=== PATIENT | male | born 1935 | race Caucasian/White ===

== ENCOUNTER 2017-12-24 23:38 | Emergency (ER) | payer BC, MEDICARE ==
[2017-12-25] MEDS ORDERED: ASPIRIN 81 MG CHEWABLE TABLET PO ONE (00:06)
[2017-12-25] MEDS ORDERED: DILTIAZEM 25MG/5ML VIAL IV ONE (00:14)
[2017-12-25 00:19] LABS: HEMATOCRIT 44.7 % (42.0-52.0); HEMOGLOBIN 14.8 gm/dl (14.0-18.0); MEAN CELL VOLUME 95.9 fl (81-97); MEAN CORPUSCULAR HEMOGLOBIN 31.8 pg (27-33); MEAN CORPUSCULAR HGB CONC 33.1 g/dl (32-36); MEAN PLATELET VOLUME 9.9 fl (7.4-10.4); PLATELET COUNT 218 K/uL (130-400); RED BLOOD COUNT 4.66 M/uL (4.40-5.70); RED CELL DISTRIBUTION WIDTH 14.4 % (11.5-14.5); WHITE BLOOD COUNT W/O DIFF 12.7 K/uL (4.2-12.2)
--- NOTE | 2017-12-25 00:27 | Emergency Department Record ---
History of Present Illness - General Chief Complaint: Cough Stated Complaint: "I HAVE A COLD THAT GOES AWAY AND COMES BACK" Time Seen by Provider: 12/24/17 23:50 Source: Patient Mode of Arrival: Ambulatory Limitations: No limitations - History of Present Illness Initial Comments: pt felt some tightness across his chest tonight for an hour cow tender. he has never had anything like that before. he had a cold a few weeks ago and went to [facility] . he has never had any cardiac issues. MD Complaint: Chest pain Onset/Timin -: Hour(s) Severity scale (1-10): 8 Consistency: Constant - Related Data Home Medications Medication Instructions Recorded Confirmed Last Taken Abiraterone Acetate [Zytiga] 4 tab PO DAILY 12/24/17 12/24/17 Unknown Amoxicillin [Amoxil] 875 mg PO BID 12/24/17 12/24/17 Unknown Atorvastatin Calcium [Lipitor] 10 mg PO DAILY 12/24/17 12/24/17 Unknown Fluticasone Propionate [Flonase] 2 spray EACH NARES BID 12/24/17 12/24/17 Unknown Loratadine 10 mg PO DAILY 12/24/17 12/24/17 Unknown Meloxicam 7.5 mg PO DAILY 12/24/17 12/24/17 Unknown Prednisone 5 mg PO DAILY 12/24/17 12/24/17 Unknown Aspirin [Aspir-Low] 81 mg PO DAILY 12/25/17 12/25/17 Unknown Allergies Allergy/AdvReac Type Severity Reaction Status Date / Time No Known Drug Allergies Allergy Verified 12/24/17 23:42 Travel Screening - Travel/Exposure Within Last 30 Days Have you traveled within the last 30 days?: No - Travel Symptoms Symptom Screening: None Review of Systems Reviewed: No additional complaints except as noted below Constitutional: Reports: As per HPI. Denies: Chills, Fever, Malaise, Night sweats, Weakness, Weight change Eyes: Reports: As per HPI. Denies: Eye discharge, Eye pain, Photophobia, Vision change ENT: Reports: As per HPI. Denies: Congestion, Dental pain, Ear pain, Epistaxis , Hearing loss, Throat pain Respiratory: Reports: As per HPI. Denies: Cough, Dyspnea, Hemoptysis, Stridor, Wheezes Cardiovascular: Reports: As per HPI. Denies: Arrhythmia, Chest pain, Dyspnea on exertion, Edema, Murmurs, Orthopnea, Palpitations, Paroxysmal nocturnal dyspnea, Rheumatic Fever, Syncope Endocrine: Reports: As per HPI. Denies: Fatigue, Heat or cold intolerance, Polydipsia, Polyuria Gastrointestinal: Reports: As per HPI. Denies: Abdominal pain, Constipation, Diarrhea, Hematemesis, Hematochezia, Melena, Nausea, Vomiting Genitourinary: Reports: As per HPI. Denies: Dysuria, Frequency, Hematuria, Incontinence, Retention, Testicular pain, Testicular mass, Urgency Musculoskeletal: Reports: As per HPI. Denies: Arthralgia, Back pain, Gout, Joint swelling, Myalgia, Neck pain Skin: Reports: As per HPI. Denies: Bruising, Change in color, Change in hair/ nails, Lesions, Pruritus, Rash Neurological: Reports: As per HPI. Denies: Abnormal gait, Confusion, Headache, Numbness, Paresthesias, Seizure, Tingling, Tremors, Vertigo, Weakness Psychiatric: Reports: As per HPI. Denies: Anxiety, Auditory hallucinations, Depression, Homicidal thoughts, Suicidal thoughts, Visual hallucinations Hematological/Lymphatic: Reports: As per HPI. Denies: Anemia, Blood Clots, Easy bleeding, Easy bruising, Swollen glands Past Medical History - SOCIAL HISTORY Smoking Status: Never smoker - RESPIRATORY Hx Respiratory Disorders: Yes Comment:: seasonal allergies - CARDIOVASCULAR Hx Cardio Disorders: Yes Comment:: High cholesterol - NEURO Hx Neuro Disorders: No - GI Hx GI Disorders: No - Hx Genitourinary Disorders: Yes Hx Prostate Problems: Yes (Cancer) - ENDOCRINE Hx Endocrine Disorders: No - MUSCULOSKELETAL Hx Musculoskeletal Disorders: No - PSYCH Hx Psych Problems: No - HEMATOLOGY/ONCOLOGY Hx Hematology/Oncology Disorders: Yes Hx Cancer: Yes (Prostrate ; Bone) Hx Chemotherapy: No Hx Radiation Therapy: No Family Medical History Any Significant Family History?: No Family Hx Comment (NOT TO BE USED IN PLACE OF ITEMS BELOW): unknown Physical Exam - General General Appearance: Alert, Oriented x3, Cooperative, Mild distress - Head Head exam: Normal inspection - Eye Eye exam: Normal appearance, PERRL, EOMI Pupils: Normal accommodation - ENT ENT exam: Normal exam, Mucous membranes moist, Normal external ear exam, Normal orophraynx Ear exam: Normal external inspection. negative: External canal tenderness Nasal Exam: Normal inspection. negative: Discharge, Sinus tenderness Mouth exam: Normal external inspection, Tongue normal Teeth exam: Normal inspection. negative: Dental caries Throat exam: Normal inspection. negative: Tonsillar erythema, Tonsillar exudate - Neck Neck exam: Normal inspection, Full ROM. negative: Tenderness - Respiratory Respiratory exam: Normal lung sounds bilaterally. negative: Respiratory distress - Cardiovascular Cardiovascular Exam: Normal heart sounds, Irregular rhythm, Tachycardia - GI/Abdominal GI/Abdominal exam: Soft, Normal bowel sounds. negative: Tenderness - Rectal Rectal exam: Deferred - exam: Deferred - Extremities Extremities exam: Normal inspection, Full ROM, Normal capillary refill. negative: Tenderness - Back Back exam: Reports: Normal inspection, Full ROM. 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 ] Pulse Rate [ 96 H Pulse Ox Probe] Respiratory 20 18 Rate Blood Pressure 154/97 [Left Arm] Blood Pressure 78/65 [Right Arm] Pulse Ox 95 93 L Medical Decision Making - Lab Data Result diagrams: 12/25/17 00:10 12/25/17 00:05 Lab Results 12/25/17 Range/Units 00:10 WBC 12.7 H (4.2-12.2) K/uL RBC 4.66 (4.40-5.70) M/uL Hgb 14.8 (14.0-18.0) gm/dl Hct 44.7 (42.0-52.0) % MCV 95.9 (81-97) fl MCH 31.8 (27-33) pg MCHC 33.1 (32-36) g/dl RDW 14.4 (11.5-14.5) % Plt Count 218 (130-400) K/uL MPV 9.9 (7.4-10.4) fl Neutrophils % 82.0 H (47-80) % Band Neutrophils % 2.0 (0-5) % Eosinophils % Not Reportable Basophils % Not Reportable Lymphocytes 10.0 L (16-45) % Monocytes 6.0 (0-9) % Basophils 0.0 (0-6) % Eosinophil Count 0.0 (0-6) % Disposition Disposition: Transfer Clinical Impression: New onset a-fib Disposition: Acute Care Hospital Transfer Transfer To: [facility] 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
[2017-12-25 00:28] LABS: BLOOD UREA NITROGEN 32 mg/dL (8-23); CREATININE 1.3 mg/dL (0.7-1.2); EST GLOMERULAR FILTRATION RATE 56 mL/min
[2017-12-25 00:31] LABS: GLUCOSE,RANDOM 182 mg/dL (74-109)
[2017-12-25 00:33] LABS: CREATINE PHOSPHOKINASE 38 U/L (39-308)
[2017-12-25 00:34] LABS: INR 1.1; PARTIAL THROMBOPLASTIN TIME 27.3 SECONDS (24.5-39.1); PROTHROMBIN TIME (PATIENT) 11.6 SECONDS (9.5-12.1)
[2017-12-25 00:37] LABS: CKMB 2.4 ng/mL (<6.73)
[2017-12-25 00:44] LABS: THYROID STIMULATING HORMONE 1.02 uIU/mL (0.270-4.20)
[2017-12-25] MEDS ORDERED: HEPARIN SODIUM 1000 UNIT/1 ML 10ML VIAL IVP ONE (01:11)
[2017-12-25] MEDS ORDERED: DILTIAZEM HCL 125 MG in 0.9 % SODIUM CHLORIDE 100ML 100 ML IV SCH (01:15)
[2017-12-25] MEDS ORDERED: HEPARIN SODIUM/D5W 25,000 UNITS/500 ML BAG IV SCH (01:15)
[2017-12-25] MEDS ORDERED: DILTIAZEM HCL 125 MG in 0.9 % SODIUM CHLORIDE 100ML 100 ML IV ONE (01:16)
[2017-12-25] MEDS ORDERED: HEPARIN SODIUM/D5W 25,000 UNITS/500 ML BAG IV ONE (01:17)
[2017-12-25] MEDS ORDERED: 0.9 % SODIUM CHLORIDE 1000ML 1,000 ML IV PRN (04:36)
== END 2017-12-25 05:50 | disposition short-term general hospital (02) ==
LOC: ER 23:38
DX: I48.91 Unspecified atrial fibrillation (principal); Z85.46 Personal history of malignant neoplasm of prostate
CPT/HCPCS: 71045; 80048; 82550; 82553; 84443; 84484; 85027; 85379; 85610; 85730; 93005; 93010; 96365; 96366; 96368; 96375; 99285

== ENCOUNTER 2018-07-24 13:02 | Emergency (ER) | payer MEDICARE ==
--- NOTE | 2018-07-24 13:33 | Emergency Department Record ---
History of Present Illness - General Chief complaint: Extremity Problem Stated complaint: SWOLLEN LEGS Time Seen by Provider: 07/24/18 13:21 Source: Patient Mode of Arrival: Ambulatory Limitations: No limitations - History of Present Illness Initial comments: 83 yo male presents from the [facility]. He has had bilateral leg swelling since October of this year. He has a history of chronic atrial fibrillation on Eliquis. He saw his international tax manager Dr Patel this past week. His rate has been controlled, he is on Eliquis, no shortness of breath, no chest pain, no orthopnea, no PND, no ULLOA. He noted a small amount of clear fluid in his sock and was concerned. His PCP is Dr Willoughby. He states he did not think to show Dr Patel his legs during his cardiology appointment. He is not on a diuretic at this time. He has been on diuretic in the past. MD Complaint: Extremity swelling Onset/Timin -: Month(s) Location: Bilateral, Lower Leg History of Same: No Radiation: Distal Quality: Other (No pain) Consistency: Constant Improves with: Elevation Worsens with: Walking Associated Symptoms: Denies other symptoms - Related Data Home Medications Medication Instructions Recorded Confirmed Last Taken Metoprolol Tartrate 100 mg PO DAILY 07/24/18 07/24/18 07/24/18 Previous Rx's Medication Instructions Recorded Furosemide [Lasix] 20 mg PO DAILY #30 tablet 07/24/18 Allergies Allergy/AdvReac Type Severity Reaction Status Date / Time No Known Drug Allergies Allergy Verified 07/24/18 13:09 Travel Screening - Travel/Exposure Within Last 30 Days Have you traveled within the last 30 days?: No - Travel/Exposure Within Last Year Have you traveled outside the [place] in the last year?: No - Additonal Travel Details Have you been exposed to anyone with a communicable illness?: No - Travel Symptoms Symptom Screening: None Review of Systems Constitutional: Denies: Chills, Fever, Malaise, Weakness Eyes: Denies: Eye discharge ENT: Denies: Congestion, Throat pain Respiratory: Denies: Cough, Dyspnea, Hemoptysis, Stridor, Wheezes Cardiovascular: Reports: Edema. Denies: Chest pain, Palpitations, Syncope Endocrine: Denies: Fatigue Gastrointestinal: Denies: Abdominal pain, Diarrhea, Nausea, Vomiting Genitourinary: Denies: Dysuria, Frequency, Hematuria Musculoskeletal: Denies: Arthralgia, Myalgia Skin: Denies: Bruising, Change in color, Rash Neurological: Denies: Headache Psychiatric: Denies: Anxiety Hematological/Lymphatic: Denies: Blood Clots, Easy bruising Past Medical History - SOCIAL HISTORY Smoking Status: Never smoker Alcohol Use: Rare Drug Use: None - RESPIRATORY Hx Respiratory Disorders: Yes Comment:: seasonal allergies - CARDIOVASCULAR Hx Cardio Disorders: Yes Comment:: High cholesterol - NEURO Hx Neuro Disorders: No - GI Hx GI Disorders: No - Hx Genitourinary Disorders: Yes Hx Prostate Problems: Yes (Cancer) - ENDOCRINE Hx Endocrine Disorders: No - MUSCULOSKELETAL Hx Musculoskeletal Disorders: No - PSYCH Hx Psych Problems: No - HEMATOLOGY/ONCOLOGY Hx Hematology/Oncology Disorders: Yes Hx Cancer: Yes (Prostrate ; Bone) Hx Chemotherapy: No Hx Radiation Therapy: No Family Medical History Any Significant Family History?: No Family Hx Comment (NOT TO BE USED IN PLACE OF ITEMS BELOW): unknown Physical Exam - General General Appearance: Alert, Oriented x3, Cooperative, No acute distress, Other ( Calm, relaxed, well appearing. ) Limitations: No limitations - Head Head exam: Atraumatic, Normal inspection - Eye Eye exam: Normal appearance. negative: Conjunctival injection - ENT ENT exam: Normal exam, Mucous membranes moist Ear exam: Normal external inspection Nasal Exam: Normal inspection Mouth exam: Normal external inspection - Neck Neck exam: Normal inspection - Respiratory Respiratory exam: Normal lung sounds bilaterally. negative: Accessory muscle use, Decreased breath sounds, Prolonged expiratory, Respiratory distress, Rhonchi, Stridor, Wheezes - Cardiovascular Cardiovascular Exam: Regular rate, Irregular rhythm. negative: Normal rhythm Peripheral Pulses: 2+: Radial (R), Radial (L) - GI/Abdominal GI/Abdominal exam: Soft. negative: Tenderness - exam: Deferred - Extremities Extremities exam: Full ROM, Normal capillary refill, Pedal edema (+2 symmentric , no abnormal warmth or redness, no blisters, no current clear fluid oozing), Other (No edema at or above the knee). negative: Normal inspection, Calf tenderness, Tenderness - Back Back exam: Denies: CVA tenderness (R), CVA tenderness (L) - Neurological Neurological exam: Alert, Oriented X3 - Psychiatric Psychiatric exam: Normal affect, Normal mood - Skin Skin exam: Dry, Intact, Normal color, Warm Course Vital Signs 12/21/18 12/21/18 13:13 13:23 Temperature 97.5 F L Pulse Rate 111 H 111 H Respiratory 20 20 Rate Blood Pressure 118/78 118/78 Pulse Ox 95 95 - Reevaluation(s) Reevaluation #1: EKG 13:37 Rate controlled atrial fibrillation, intervals normal, axis normal, ST no acute changes. No changes from prior with Afib. 07/24/18 13:42 07/24/18 14:08 The Troponin is normal The ProBNP is elevated at 5259 07/24/18 14:09 07/24/18 14:11 The CXR was reviewed. No overt CHF,no effusion 07/24/18 14:15 The results were discussed with the patient. I will attempt to contact Dr Patel the patient's international tax manager. 07/24/18 14:[address] Andujar of [facility]. The most recent EF was mild reduction only in EF The patient will be placed back on his Lasix 20mg daily and asked to weight himself daily, follow up with Dr Willoughby next week Medical Decision Making - Lab Data Result diagrams: 07/24/18 13:35 07/24/18 13:35 Disposition Disposition: Discharge Clinical Impression: Chronic atrial fibrillation, Peripheral edema, Congestive heart failure (CHF) Disposition: Home, Self-Care Condition: (1) Good Instructions: Heart Failure (ED) Additional Instructions: Restart your Lasix 20mg daily Weight yourself daily and keep track of the results Return to the ER if worse, short of breath or any other concerns You will need repeat lab tests next week when you see your doctor. Prescriptions: Furosemide [Lasix] 20 mg PO DAILY #30 tablet Forms: Patient Portal Access Time of Disposition: 14:24 Quality - Quality Measures Quality Measures: N/A - Blood Pressure Screening Does Patient Have Any of the Following: No Blood Pressure Classification: Normal BP Reading Systolic Measurement: 118 Diastolic Measurement: 78 Screening for High Blood Pressure: < Normal BP, F/U Not Required > [G8783]
[2018-07-24 13:46] LABS: BASO % 0.1 % (0-6); EOS % 0.5 % (0-6); GRAN % 78.2 % (47-80); HEMATOCRIT 44.8 % (42.0-52.0); HEMOGLOBIN 14.8 gm/dl (14.0-18.0); LYMPH % 13.5 % (16-45); MEAN CELL VOLUME 94.3 fl (81-97); MEAN CORPUSCULAR HEMOGLOBIN 31.2 pg (27-33); MEAN PLATELET VOLUME 10.3 fl (7.4-10.4); MONO % 7.7 % (0-9); PLATELET COUNT 208 K/uL (130-400); RED BLOOD COUNT 4.75 M/uL (4.40-5.70); WHITE BLOOD COUNT W/O DIFF 9.4 K/uL (4.2-12.2)
[2018-07-24 13:54] LABS: BLOOD UREA NITROGEN 35 mg/dL (8-23); CREATININE 1.4 mg/dL (0.7-1.2); EST GLOMERULAR FILTRATION RATE 51 mL/min
[2018-07-24 13:57] LABS: GLUCOSE,RANDOM 100 mg/dL (74-109)
--- NOTE | 2018-07-25 12:55 | RADIOLOGY REPORT ---
DATE: 07/24/2018. EXAM: TWO-VIEW CHEST. HISTORY: DIFFICULTY IN BREATHING. TECHNIQUE: Frontal and lateral views of the chest were performed. COMPARISON: 12/30/2017. FINDINGS: Heart size is normal. Calcified granuloma in the right lower lobe. Atelectasis/scar tissue in the left lung base. IMPRESSION: 1. NO ACUTE PULMONARY DISEASE PROCESS. 2. ATELECTASIS IN THE LEFT LUNG BASE. JOB NUMBER: [id number] MTDD
== END 2018-07-24 14:36 | disposition home or self-care (01) ==
LOC: ER 13:02
DX: I48.2 Chronic atrial fibrillation (principal); R60.0 Localized edema; I50.9 Heart failure, unspecified; Z79.01 Long term (current) use of anticoagulants
CPT/HCPCS: 71046; 80048; 83880; 84484; 85025; 93005; 93010; 99284

== ENCOUNTER 2018-10-28 14:23 | Emergency (ER) | payer MEDICARE ==
--- NOTE | 2018-10-28 15:34 | Emergency Department Record ---
History of Present Illness - General Chief complaint: Extremity Problem Stated complaint: LEG INFECTION Time Seen by Provider: 10/28/18 15:25 Source: Patient Mode of Arrival: Ambulatory Limitations: No limitations - History of Present Illness Initial comments: The patient is here due to having swollen legs for at least a month. He has had some drainage from the legs and sores on the back of the R leg. The patient denies any fever, chills, or any new pain. He did see his [facility] doctor 2 days ago and possibly was placed on an oral Abx and was told to go to the ER if not better in 2 days. MD Complaint: Extremity swelling Onset/Timin -: Month(s) Location: Bilateral, Ankle, Lower Leg Severity scale (1-10): 4 Improves with: Nothing Worsens with: Nothing Associated Symptoms: Denies other symptoms - Related Data Home Medications Medication Instructions Recorded Confirmed Last Taken Silver Sulfadiazine [Silvadene 1 applic TOP BID 10/28/18 10/28/18 10/28/18 Cream] Previous Rx's Medication Instructions Recorded Cephalexin [Keflex] 500 mg PO BID #14 cap 10/28/18 Hydrochlorothiazide [Hctz] 25 mg PO DAILY #7 tablet 10/28/18 Allergies Allergy/AdvReac Type Severity Reaction Status Date / Time No Known Drug Allergies Allergy Verified 10/28/18 15:13 Travel Screening - Travel/Exposure Within Last 30 Days Have you traveled within the last 30 days?: No - Travel/Exposure Within Last Year Have you traveled outside the [place] in the last year?: No - Additonal Travel Details Have you been exposed to anyone with a communicable illness?: No - Travel Symptoms Symptom Screening: None Review of Systems Constitutional: Denies: Chills, Fever Eyes: Denies: Eye discharge ENT: Denies: Congestion Respiratory: Denies: Cough, Dyspnea Past Medical History - SOCIAL HISTORY Smoking Status: Never smoker Alcohol Use: None Drug Use: None - RESPIRATORY Hx Respiratory Disorders: Yes Comment:: seasonal allergies - CARDIOVASCULAR Hx Cardio Disorders: Yes Comment:: High cholesterol - NEURO Hx Neuro Disorders: No - GI Hx GI Disorders: No - Hx Genitourinary Disorders: Yes Hx Prostate Problems: Yes (Cancer) - ENDOCRINE Hx Endocrine Disorders: No - MUSCULOSKELETAL Hx Musculoskeletal Disorders: No - PSYCH Hx Psych Problems: No - HEMATOLOGY/ONCOLOGY Hx Hematology/Oncology Disorders: Yes Hx Cancer: Yes (Prostrate ; Bone) Hx Chemotherapy: No Hx Radiation Therapy: No Family Medical History Any Significant Family History?: No Family Hx Comment (NOT TO BE USED IN PLACE OF ITEMS BELOW): unknown Physical Exam - General General Appearance: Alert, Oriented x3, Cooperative, No acute distress - Head Head exam: Atraumatic, Normocephalic - Eye Eye exam: Normal appearance, PERRL - Neck Neck exam: Normal inspection, Full ROM. negative: Tenderness - Respiratory Respiratory exam: Normal lung sounds bilaterally. negative: Respiratory distress - Cardiovascular Cardiovascular Exam: Irregular rhythm. negative: Regular rate, Normal rhythm - GI/Abdominal GI/Abdominal exam: Soft, Normal bowel sounds. negative: Tenderness - Extremities Extremities exam: Normal capillary refill, Pedal edema (2+ R>L. ), Tenderness ( There is slight lower leg tenderness posteriorly but no warmth or significant erythema.), Other (The DP pulses are 1+ and equal bilaterally.). negative: Normal inspection - Neurological Neurological exam: Alert. negative: Motor sensory deficit Course Vital Signs 10/28/18 15:18 Temperature 97.7 F Pulse Rate 93 H Respiratory 20 Rate Blood Pressure 155/92 Pulse Ox 97 - Reevaluation(s) Reevaluation #1: The patient is doing very well at this time. He is up walking and has urinated twice. I did discuss the need to stop the Bactrim that he was previously given and to start the Keflex with HCTZ. The patient is to see Dr. Willoughby next week to recheck the legs and to recheck the patient's BMP. 10/28/18 17:49 Reevaluation #2: I did discuss the plan with Dr. Willoughby and he will recheck the patient next week. I also did discus the case with Dr. Nicole (Oncology) and he also agrees with the plan. 10/28/18 17:51 Medical Decision Making - Data Complexity MDM Data: Labs Ordered and/or Reviewed - Lab Data Result diagrams: 10/28/18 15:45 10/28/18 15:45 Disposition Disposition: Discharge Clinical Impression: Leg swelling Disposition: Home, Self-Care Condition: (2) Stable Instructions: Leg Edema (ED) Additional Instructions: Please stop the Bactrim and start the Keflex and HCTZ water pill. Please see Dr. Willoughby next week for recheck and be sure to tell him your weight was 184 today. Return to the ER for any worsening symptoms. Prescriptions: Cephalexin [Keflex] 500 mg PO BID #14 cap Hydrochlorothiazide [Hctz] 25 mg PO DAILY #7 tablet Forms: Patient Portal Access Time of Disposition: 17:54 Quality - Quality Measures Quality Measures: N/A - Blood Pressure Screening View Details: Yes Does Patient Have Any of the Following: No Blood Pressure Classification: Hypertensive Reading Systolic Measurement: 155 Diastolic Measurement: 92 Screening for High Blood Pressure: < First Hypertensive BP, F/U Documented > [ G8950] First Hypertensive Follow-up Interventions: Referral to alternative/primary care provider.
[2018-10-28 15:58] LABS: HEMATOCRIT 43.3 % (42.0-52.0); HEMOGLOBIN 14.4 gm/dl (14.0-18.0); MEAN CELL VOLUME 96.2 fl (81-97); MEAN CORPUSCULAR HGB CONC 33.3 g/dl (32-36); MEAN PLATELET VOLUME 10.5 fl (7.4-10.4); PLATELET COUNT 218 K/uL (130-400); RED CELL DISTRIBUTION WIDTH 14.4 % (11.5-14.5); WHITE BLOOD COUNT W/O DIFF 9.2 K/uL (4.2-12.2)
[2018-10-28 16:25] LABS: BLOOD UREA NITROGEN 34 mg/dL (8-23); CREATININE 1.6 mg/dL (0.7-1.2); EST GLOMERULAR FILTRATION RATE 44 mL/min
[2018-10-28 16:26] LABS: TOTAL PROTEIN 6.3 g/dL (6.6-8.7)
[2018-10-28 16:28] LABS: GLUCOSE,RANDOM 103 mg/dL (74-109)
[2018-10-28 16:30] LABS: ALBUMIN 3.5 g/dL (4.0-5.0); ALKALINE PHOSPHATASE 100 U/L (40-129); ALT/SGPT 17 U/L (<41); AST/SGOT 18 U/L (10.0-50.0); C-REACTIVE PROTEIN 0.78 mg/dL (<0.5)
[2018-10-28 16:37] LABS: BILIRUBIN,DIRECT < 0.2 mg/dL (0-0.3)
[2018-10-28] MEDS ORDERED: FUROSEMIDE IV 20MG/2ML VIAL IVP ONE (16:46)
[2018-10-28] MEDS ORDERED: CEFTRIAXONE 1GM/50ML BAG 1 GM/50 ML BAG IVPB ONE (16:47)
== END 2018-10-28 18:08 | disposition home or self-care (01) ==
LOC: ER 14:23
DX: R60.0 Localized edema (principal); Z85.46 Personal history of malignant neoplasm of prostate; Z85.830 Personal history of malignant neoplasm of bone
CPT/HCPCS: 99284 ×2; 96365; 96375; 80076; 86140; 80048; 85027; 83880; J0696; J1940